=== PATIENT | male | born 1955 | race Two or more races ===

== ENCOUNTER 2021-09-22 23:05 | Emergency (ER) | payer OTHER ==
[~2021-09-22] VITALS: Ht 185.4 cm; Wt 98.0 kg
[2021-09-23] MEDS ORDERED: CIPROFLOXACIN500 MG PO (05:17)
[2021-09-23] MEDS ORDERED: PERCOCET 5-3251 EACH PO (05:17)
[2021-09-23] MEDS ORDERED: TAMS0.4C PO (05:17)
== END 2021-09-23 06:27 | disposition home or self-care (01) ==
LOC: ER 23:05
DX: N20.2 Calculus of kidney with calculus of ureter (principal); Z88.0 Allergy status to penicillin